=== PATIENT | male | born 1960 | race Caucasian/White ===

== ENCOUNTER 2021-01-14 12:09 | Inpatient (IN) | payer MEDICAID ==
[2021-01-14] MEDS ORDERED: diltiaZEM INJ 5 MG/ML VIAL IVP STA ×2 (12:28→13:22)
[2021-01-14] MEDS ORDERED: SODIUM CHLORIDE 0.9% 1,000 ML IV STA ×2 (12:28→14:43)
--- NOTE | 2021-01-14 12:32 | ED Physician Documentation ---
History of Present Illness - Stated complaint Stated Complaint: FAST HEART RATE - Chief complaint Chief Complaint: Cardiac - Additonal information Additional information: 60-year-old male presents the emergency department for evaluation of rapid heart rate that has been an intermittent problem since September 2020 but starting to occur with increased frequency. This morning he began to feel palpitations and felt SOB with exertion He has seen his religious studies professor Dr. Zavala who suspects that he may be entering into atrial fibrillation and has ordered what sounds like a Holter monitor though it has not been approved arrived or instilled. He did see his religious studies professor last week and she ordered Metroprolol which is just now available at the pharmacy. He denies any hx of CAD, RI, strokes, stents. He states that over the last 2 to 3 months when he has these palpitations they last a few hours before stopping. This gentleman denies any syncope or leg swelling. He does feel very fatigued when he tries to run or do activities. He is not a smoker. Past medical history: Hyperlipidemia, hypertension Meds: benazepril daily, aspirin 81 mg every other day, Crestor every 3 days newly prescribed metoprolol which she has not yet begun. Review of Systems Constitutional: reports: Fatigue. denies: Fever, Chills Eyes: reports: Reviewed and negative Ears: reports: Reviewed and negative Nose: reports: Reviewed and negative Throat: reports: Reviewed and negative Cardiac: reports: Palpitations. denies: Chest pain / pressure, Pedal edema, Calf pain Respiratory: reports: Dyspnea. denies: Cough GI: denies: Abdominal Pain, Nausea, Vomiting, Constipation, Diarrhea : denies: Dysuria, Frequency, Hesitancy Skin: reports: Reviewed and negative Musculoskeletal: reports: Reviewed and negative Neurologic: reports: Near syncope. denies: Generalized weakness, Syncope, Confused, Altered mental status, Unresponsive, Headache, Head injury PD PAST MEDICAL HISTORY - Present Medications Home Medications: Ambulatory Orders Medication Instructions Recorded Confirmed Benazepril HCl [Lotensin] 10 mg PO DAILY 01/14/21 01/14/21 Rosuvastatin Calcium [Crestor] 10 mg PO DAILY 01/14/21 01/14/21 - Allergies Allergies/Adverse Reactions: Allergies Allergy/AdvReac Type Severity Reaction Status Date / Time latex Allergy Rash Verified 01/14/21 12:13 PD ED PE EXPANDED - General General: Alert, No acute distress, Well developed/nourished - Neck Neck: Supple w/out meningeal sx. No: Adenopathy - Cardiac Cardiac: Irregularly irregular, Murmur Present, Radial strong equal, Pedal strong equal, Cap refill < 2 sec - Respiratory Respiratory: Clear to ausultation paige. No: Distress, Labored - Abdomen Abdomen: Normal Bowel sounds. No: Tender to palpation - Derm Derm: Normal color, Warm and dry. No: Rash - Neuro Neuro: Alert and Oriented X 3. No: Confused, Disoriented - GCS Eye Opening: Spontaneous Motor: Obeys Commands Verbal: Oriented Total: 15 Results - Vitals Vitals: Vital Signs - 24 hr 01/14/21 01/14/21 01/14/21 12:14 12:54 13:24 Temperature 36.7 C Heart Rate 115 H 119 H 107 H Respiratory 18 12 14 Rate Blood Pressure 141/71 H 141/85 H 122/67 O2 Saturation 100 99 98 01/14/21 01/14/21 01/14/21 14:15 14:23 14:30 Temperature Heart Rate 135 H 132 H 113 H Respiratory 16 15 14 Rate Blood Pressure 124/73 119/66 119/78 O2 Saturation 97 98 97 01/14/21 01/14/21 15:00 15:30 Temperature Heart Rate 137 H 107 H Respiratory 14 14 Rate Blood Pressure 123/79 120/74 O2 Saturation 99 99 Oxygen O2 Source Room air - EKG (time done) 1220 Rate: Rate (enter#) (154) Rhythm: Atrial fibrillation Intervals: RBBB, Other (incomplete) QRS: Normal Ischemia: Non specific changes (likely rate related) Compare to prior EKG: Old EKG unavailable Computer interpretation: Agree with computer 1447 Rate: Rate (enter#) (137) Rhythm: Atrial flutter [place]: Other Intervals: Normal LA QRS: Normal Ischemia: Q waves Compare to prior EKG: Changed from prior EKG Computer interpretation: Agree with computer - Labs Labs: Laboratory Tests 01/14/21 01/14/21 01/14/21 12:48 12:48 12:48 WBC 5.4 RBC 5.08 Hgb 16.7 Hct 47.7 MCV 93.9 MCH 32.9 H MCHC 35.0 RDW 11.9 L Plt Count 176 MPV 8.8 Neut # (Auto) 3.7 Lymph # (Auto) 1.2 L Gila # (Auto) 0.4 Eos # (Auto) 0.1 Baso # (Auto) 0.0 Absolute Nucleated RBC 0.00 Nucleated RBC % 0.0 PT INR Sodium 138 Potassium 4.0 Chloride 101 Carbon Dioxide 26 Anion Gap 11.0 BUN 17 Creatinine 1.1 Estimated GFR (MDRD) 68 L Glucose 120 H Calcium 9.2 Total Bilirubin 1.0 AST 22 ALT 16 Alkaline Phosphatase 45 Troponin I High Sens 4.8 B-Natriuretic Peptide Total Protein 7.5 Albumin 4.1 Globulin 3.4 Albumin/Globulin Ratio 1.2 Lipase 34 TSH 01/14/21 01/14/21 01/14/21 12:48 12:48 12:48 WBC RBC Hgb Hct MCV MCH MCHC RDW Plt Count MPV Neut # (Auto) Lymph # (Auto) Gila # (Auto) Eos # (Auto) Baso # (Auto) Absolute Nucleated RBC Nucleated RBC % PT 12.2 INR 1.1 Sodium Potassium Chloride Carbon Dioxide Anion Gap BUN Creatinine Estimated GFR (MDRD) Glucose Calcium Total Bilirubin AST ALT Alkaline Phosphatase Troponin I High Sens B-Natriuretic Peptide 119 H Total Protein Albumin Globulin Albumin/Globulin Ratio Lipase TSH 2.16 - Rads (name of study) CXR Radiology: Final report received (no acute cardiopulmonary process) PD MEDICAL DECISION MAKING - ED course Complexity details: reviewed results, re-evaluated patient, considered differential, d/w patient ED course: 60-year-old male presents the emergency department for evaluation of shortness of breath and palpitations. This has been a recurrent and intermittent problem since September. He was seen last week by his religious studies professor who recommended he be initiated on a beta-livan but this prescription has not yet been filled. He also was ordered to undergo Holter monitoring that is yet to be scheduled. This morning he reports that he developed shortness of breath with exertion and had a racing heart rate. On presentation he was noted to be in atrial fib with RVR rate of 157-160. This gentleman was initially given 10 mg of diltiazem without a change in heart rate therefore it was repeated. Again no change in heart rate. At this time we did then give him 10 mg of labetalol which brought him into what initially appeared to be a sinus rhythm with a steady rate of 130 but on reevaluation was atrial flutter with a 2-1 conduction. Because his heart rate remained in the 130s we repeated the labetalol this time though it was 20 mg. His heart rate did not change and he remained in flutter in the 138 without rate variability. I did seek consultation with our hospitalist Dr. Desir. She suggested transfer this gentleman to [facility] where his religious studies professor is as flutter can be very difficult to control. I did speak on the phone with Dr. ESPINOZA who declined to accept the patient in transfer. He felt that rate control and anticoagulation should be the goal at this time. If we are unable to obtain adequate rate control despite IV medications then we could consider transfer for possible cardioversion that would likely need a ASIF which we do not have here at [facility].Patient's screening labs showed no acute worrisome findings including a high-sensitivity troponin and his BNP. Chest x-ray was also unrevealing as well as a thyroid panel. This case was then discussed again with Dr. Desir who agrees to admit the patient for further treatment and evaluation of his atrial fibrillation/flutter. Departure - Departure Disposition: 64 [facility] DC/Xfer Clinical Impression: Atrial fibrillation and flutter Discharge Date/Time: 01/14/21 16:15
[2021-01-14 12:57] LABS: BASOPHILS % (AUTO) 0.6 %; EOSINOPHILS # (AUTO) 0.1 10^3/uL (0.0-0.7); EOSINOPHILS % (AUTO) 2.6 %; HCT - HEMATOCRIT 47.7 % (42.0-52.0); HGB - HEMOGLOBIN 16.7 g/dL (14.0-18.0); LYMPHOCYTES # (AUTO) 1.2 10^3/uL (1.5-3.5); LYMPHOCYTES % (AUTO) 22.1 %; MEAN CORPUSCULAR HEMOGLOBIN 32.9 pg (27.0-31.0); MEAN CORPUSCULAR VOLUME 93.9 fL (80.0-94.0); MEAN PLATELET VOLUME 8.8 fL (7.4-11.4); MONOCYTES # (AUTO) 0.4 10^3/uL (0.0-1.0); MONOCYTES % (AUTO) 7.4 %; NEUTROPHILS # (AUTO) 3.7 10^3/uL (1.5-6.6); NEUTROPHILS % (AUTO) 67.1 %; PLT - PLATELET COUNT 176 10^3/uL (130-450); RED BLOOD COUNT 5.08 10^6/uL (4.70-6.10); RED CELL DISTRIBUTION WIDTH 11.9 % (12.0-15.0); WHITE BLOOD COUNT 5.4 x10^3/uL (4.8-10.8)
[2021-01-14 13:05] LABS: INR 1.1 (0.8-1.2); PT - PROTHROMBIN TIME 12.2 secs (9.9-12.6)
[2021-01-14 13:13] LABS: ALBUMIN 4.1 g/dL (3.2-5.5); ALBUMIN/GLOBULIN RATIO 1.2 (1.0-2.2); CALCIUM 9.2 mg/dL (8.5-10.3); CREATININE 1.1 mg/dL (0.6-1.2); TOTAL PROTEIN 7.5 g/dL (6.7-8.2)
[2021-01-14] MEDS ORDERED: LABETALOL 20 MG/4 ML SYRINGE IVP STA ×2 (13:41→14:15)
--- NOTE | 2021-01-14 13:42 | XRAY Report ---
PROCEDURE: Chest 1 View X-Ray INDICATIONS: Chest Pain TECHNIQUE: One view of the chest was acquired. COMPARISON: None. FINDINGS: Surgical changes and devices: None. Lungs and pleura: No pleural effusions or pneumothorax. Lungs are clear. Mediastinum: Mediastinal contours appear normal. Heart size is normal. Bones and chest wall: No suspicious bony lesions. Overlying soft tissues appear unremarkable. IMPRESSION: No acute cardiopulmonary abnormality. Reviewed by: Adrian Clark MD on 01/14/2021 12:41 PM LEON Approved by: Adrian Clark MD on 01/14/2021 12:41 PM LEON Station ID: [id number]
[2021-01-14] MEDS ORDERED: PROCAINAMIDE 1,000 MG in SODIUM CHLORIDE 0.9% 240 ML IV STA ×2 (14:56→15:00)
[2021-01-14] MEDS ORDERED: ZOLPIDEM 5 MG TABLET PO PRN (15:46)
[2021-01-14] MEDS ORDERED: ONDANSETRON 4 MG/2 ML VIAL IVP PRN (15:46)
[2021-01-14] MEDS ORDERED: ACETAMINOPHEN 325 MG TABLET PO PRN (15:46)
[2021-01-14] MEDS ORDERED: SODIUM CHLORIDE FLUSH 0.9% 10 ML SYRINGE IVP PRN (15:46)
[2021-01-14] MEDS ORDERED: diltiaZEM INJ 125 MG in DEXTROSE 5% 100 ML IV SCH (16:00)
[2021-01-14] MEDS: SODIUM CHLORIDE 0.9% 1,000 ML IV SCH ×2 (16:15→19:09)
[2021-01-14] MEDS: SODIUM CHLORIDE FLUSH 0.9% 10 ML SYRINGE IVP SCH (17:44)
--- NOTE | 2021-01-14 18:59 | HISTORY & PHYSICAL EXAMINATION ---
DATE OF SERVICE: 01/14/2021 Physician: Devora Portillo MD HISTORY OF PRESENT ILLNESS: This is a 60-year-old white male with a history of diabetes mellitus that was diagnosed approximately 2 years ago, and he undertook losing weight, lost about 70 pounds; had been on metformin but now is no longer labeled a diabetic, according to him, and does not need to take any diabetic medicines. He also has a history of hypertension that was longstanding since his 30s, currently takes benazepril. He also has a history of hyperlipidemia for which he takes Crestor. The patient noted that about a year ago, he started to get palpitations that occurred mostly after exercise and sometimes after drinking alcohol and these increased slowly over the past 1 year and when they occur after exercise, he is very short of breath with them. There is no chest pain or dizziness associated with these. He was referred to a [facility] for this complaint of palpitations, who he saw last week, and was ordered to have a stress test (scheduled for Feb 19), and also ordered a Holter monitor, that has not yet been scheduled. The [facility] also ordered empiric Toprol-XL 12.5 mg daily that he has not yet started. Over the last 3 months, he has had much more frequent palpitations, lasting up to 6 hours. After he saw the [facility], she advised that when he is in one of the episodes with palpitations, to go be seen at a [facility] for an EKG, or come to the emergency room. He had about 4 hours of palpitations yesterday and then when they started again today, his insisted that he come to the ER. In our ER, he was found to be in new onset of atrial fibrillation with a rapid rate of about 160. He got several doses of IV diltiazem, several doses of IV labetalol, which converted him to atrial flutter at a rate of 137 and then he went back into atrial fibrillation at rates of 148. He was started on a diltiazem drip and is being admitted for new onset of atrial fibrillation, atrial flutter with rapid ventricular rate. PAST MEDICAL HISTORY: Diabetes mellitus type 2, which has now resolved after significant weight loss over the past 1 year, hypertension longstanding, hyperlipidemia. FAMILY HISTORY: Longevity is present on both sides of the family. He has a brother and a sister and nobody has heart disease. SOCIAL HISTORY: He is a nonsmoker who never smoked. He drinks alcohol nearly daily: on the weekends, he has 1/2 a bottle of red wine and 1/2 a bottle champagne, and during the week day, he has either a glass of port or Jacqueline's every day. There is no illicit drug use history. ALLERGIES: ONLY TO LATEX. MEDICATIONS 1. Benazepril 10 mg daily. 2. Crestor 10 mg every third day. 3. Adult dose aspirin half tablet every other day. REVIEW OF SYSTEMS: The patient states that he takes that Crestor spread out over every third day because if it is daily, it causes him to have malodorous bowel movements and the reason he takes aspirin 162 mg every other day is in order for it to equal 81 mg daily. He has never had a stress test before. He denies orthopnea or leg edema. He normally is very active, he can walk 1 mile a day, even up an incline like [employer]. A comprehensive review of systems was done, and the pertinent positives are listed, the rest are negative. PHYSICAL EXAM GENERAL: White male, who is in no distress. He has just converted from atrial fibrillation into sinus rhythm at a rate of 72. VITAL SIGNS: Blood pressure 115/63, afebrile, room air saturation 98%. HEENT: Unremarkable. NECK: No JVD or carotid bruits. CHEST: Clear. CARDIOVASCULAR: Normal heart sounds without murmurs. ABDOMEN: Soft, nontender. No organomegaly. Normal bowel sounds. EXTREMITIES: No clubbing, cyanosis or edema. No calf tenderness. NEUROLOGIC: Grossly intact. LABORATORY/DATA: Normal electrolytes. Normal BUN and creatinine. Normal liver tests. The first troponin was 4.8. BNP 119. TSH normal at 2.16. White blood count 5.4, hemoglobin 16.7, MCV is 93, platelet count normal at 176. INR normal at 1.1. No urinalysis was done. EKG #1: Atrial fibrillation at a rate of 154, left axis deviation, right IVCD, poor R-wave progression, lateral biphasic T-wave inversions. EKG #2: Atrial flutter with a ventricular rate of 137 and similar left axis deviation, right IVCD and now ST depressions in leads V2 through V5 are present and lateral T-waves still inverted. CHEST X-RAY: No active pulmonary disease and normal heart size. IMPRESSION/DIAGNOSES 1. New onset of atrial fibrillation. 2. Atrial flutter with rapid ventricular response. 3. History of hypertension. 4. Hyperlipidemia. 5. History of diabetes mellitus type 2, "cured" with weight loss. PLAN: Admit the patient to the ICU on diltiazem drip. Order serial troponins to rule out acute PR, especially given the ST and T-wave changes on EKG. Hold the benazepril since blood pressure is low while he is getting diltiazem for heart rate control. Now that he has converted to sinus rhythm, we will adjust heart rate medications, to start a beta-livan using the dose that was about to be prescribed by his claims sorter of 12.5 mg, but we will order it b.i.d. We will taper off the diltiazem after 1 hour of ingestion of the beta-livan dose. He has already shown results of not having hyperthyroidism, by virtue of a normal TSH. We will obtain an Echo to evaluate the dyspnea on exertion and measure an ejection fraction. Knowing his EF plus checking his A1c level, we will determine his CHADS score. Assuming he will have a CHADS score of 2 or greater since he has hypertension and diabetes by history, we will start Lovenox at full therapeutic dose b.i.d. and transition to an oral anticoagulant starting tomorrow, for stroke prevention. Plan a stress test to rule out CAD, since the outpatient stress test is scheduled in more than 5 weeks. 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 DVT PROPHYLAXIS: Pharmacotherapy. CODE STATUS: FULL CODE. ATTESTATION: Patient is expected to be discharged or transferred to another facility within 96 hours: Yes. cc: MD Dona Lee MD TD: 01/14/2021 18:31 jl [id number]
[2021-01-14] MEDS: METOPROLOL SUCCINATE 25 MG TABLET PO SCH (19:09)
[2021-01-14 20:44] LABS: BILIRUBIN,URINE NEGATIVE (NEGATIVE); GLUCOSE, URINE (UA) NEGATIVE (NEGATIVE); KETONES,URINE (UA) NEGATIVE (NEGATIVE); LEUKOCYTE ESTERASE, URINE NEGATIVE (NEGATIVE); NITRITE,URINE NEGATIVE (NEGATIVE); OCCULT BLOOD,URINE NEGATIVE (NEGATIVE); PROTEIN,URINE NEGATIVE (NEGATIVE); UROBILINOGEN,URINE 0.2 (NORMAL) E.U./dL (NORMAL)
[2021-01-14 20:50] LABS: CLARITY,URINE CLEAR (CLEAR)
[2021-01-14] MEDS ORDERED: ATORVASTATIN 10 MG TABLET PO SCH (21:00)
[2021-01-14] MEDS ORDERED: ENOXAPARIN 40 MG/0.4 ML SYRINGE SUBQ SCH (21:00)
[2021-01-14] MEDS: FAMOTIDINE 20 MG TABLET PO SCH (21:14)
[2021-01-15 04:45] LABS: BASOPHILS % (AUTO) 0.4 %; EOSINOPHILS # (AUTO) 0.1 10^3/uL (0.0-0.7); EOSINOPHILS % (AUTO) 2.5 %; HCT - HEMATOCRIT 40.4 % (42.0-52.0); HGB - HEMOGLOBIN 13.5 g/dL (14.0-18.0); LYMPHOCYTES # (AUTO) 1.7 10^3/uL (1.5-3.5); LYMPHOCYTES % (AUTO) 35.9 %; MEAN CORPUSCULAR HEMOGLOBIN 32.1 pg (27.0-31.0); MEAN CORPUSCULAR HGB CONC 33.4 g/dL (32.0-36.0); MEAN PLATELET VOLUME 9.1 fL (7.4-11.4); MONOCYTES # (AUTO) 0.4 10^3/uL (0.0-1.0); MONOCYTES % (AUTO) 8.7 %; NEUTROPHILS # (AUTO) 2.5 10^3/uL (1.5-6.6); NEUTROPHILS % (AUTO) 52.3 %; PLT - PLATELET COUNT 150 10^3/uL (130-450); RED BLOOD COUNT 4.21 10^6/uL (4.70-6.10); RED CELL DISTRIBUTION WIDTH 12.2 % (12.0-15.0); WHITE BLOOD COUNT 4.7 x10^3/uL (4.8-10.8)
[2021-01-15 04:56] LABS: CALCIUM 8.5 mg/dL (8.5-10.3); CREATININE 0.9 mg/dL (0.6-1.2); MAGNESIUM 2.2 mg/dL (1.7-2.8); POTASSIUM 3.7 mmol/L (3.5-5.0)
[2021-01-15] MEDS: SODIUM CHLORIDE FLUSH 0.9% 10 ML SYRINGE IVP SCH ×2 (06:13→08:50)
[2021-01-15] MEDS: FAMOTIDINE 20 MG TABLET PO SCH (08:47)
[2021-01-15] MEDS ORDERED: ENOXAPARIN 80 MG/0.8 ML SYRINGE SUBQ SCH (09:00)
[2021-01-15 09:01] LABS: CHOL/HDL RATIO 2.8 (<5.0); CHOLESTEROL 122 mg/dL; HDL CHOLESTEROL 43 mg/dL; LDL CHOLESTEROL,CALCULATED 61 mg/dL; LDL/HDL RATIO 1.4 (<3.6); TRIGLYCERIDES 91 mg/dL; VLDL CHOLESTEROL 18 mg/dL
[2021-01-15] MEDS: METOPROLOL SUCCINATE 25 MG TABLET PO SCH (11:56)
[2021-01-15 12:27] LABS: ESTIMATED AVERAGE GLUCOSE 103 mg/dL (70-100); HEMOGLOBIN A1c% 5.2 % (4.27-6.07)
[2021-01-15] MEDS ORDERED: diltiaZEM 30 MG TABLET PO SCH (13:30)
--- NOTE | 2021-01-15 13:47 | CARDIAC PROCEDURE NOTE ---
DATE OF SERVICE: 01/14/2021 Physician: Devora Portillo MD INDICATION: New onset of atrial fibrillation and flutter, shortness of breath with exertion. CARDIAC RISK FACTORS: Male gender, hypertension, hyperlipidemia, prior history of diabetes mellitus. DESCRIPTION OF PROCEDURE: After signing informed consent, the patient underwent a Carloz-protocol treadmill stress test with nuclear myocardial perfusion imaging. RESTING HEART RATE: 65. PEAK HEART RATE: 143 (90% predicted maximum heart rate for age). RESTING BLOOD PRESSURE: 157/85. PEAK BLOOD PRESSURE: 214/65. The patient exercised for 7 minutes and 16 seconds on a Carloz-protocol treadmill stress test. He achieved a peak heart rate of 143 (90% PMHR) and 8.99 METs. The patient had moderate shortness of breath with exertion. Oxygen saturation was 96-99% on room air throughout the test. The patient had no chest pain. Blood pressure response was excessive since he did not have his morning beta livan or NESTOR inhibitor doses. He rated his perceived exertion at 15/20 at peak, on the Veronica scale. RESTING EKG #1: Ectopic atrial rhythm with short DE interval of 120 milliseconds, left IVCD, left anterior fascicular block, poor R-wave progression. RESTING EKG #2: The patient developed normal rhythm with a normal DE interval of 180 milliseconds before starting exercise and remained in normal sinus rhythm throughout the test and in recovery. No atrial fibrillation or flutter were noted on telemetry throughout the entire test. EKG AT PEAK: ST segment depressions, downsloping, in leads I and aVL of 1 mm with biphasic T-waves in those leads, and non-specific upsloping ST depressions in leads V4 through V6 of 0.5 mm noted. SUMMARY: 1. Abnormal resting EKG. 2. Fair to good exercise tolerance. 3. Borderline ischemic changes develop during exercise, by EKG criteria. 4. Nuclear images were reported separately and showed: a fixed defect of the infero-lateral wall. No areas of reperfusion to suggest ischemia. Preserved LVEF. IMPRESSION: 1. Abnormal stress test, with evidence of CAD and old [place]. 2. Rhythm abnormality suggests that he may have sick sinus syndrome. cc: MD Dona Lee MD TD: 01/15/2021 13:36 [facility]
--- NOTE | 2021-01-15 14:45 | Discharge Plan ---
Discharge Plan Problem Reviewed?: Yes Disposition: Home, Self Care Prescriptions: Aspirin [Smitha] 1 tab PO DAILY #30 tab diltiaZEM CD [Cardizem Cd] 180 mg PO DAILY #30 cap.sr Benazepril HCl [Lotensin] 5 mg PO DAILY #15 tab Diet: Cardiac Activity Restrictions: Light activity until seen Shower Restrictions: No Driving Restrictions: No Instruction Topics: AFL/Afib Health Concerns: You were admitted to manage Atrial fib and Atrial flutter, which was found to be the cause of your palpitations. Your tests showed that you have a strong heart muscle, there was no weakened heart (CHF). The stress test, done to check for coronary artery blockages, showed that you have coronary blockage that have caused a past heart attack, in the inferior-lateral portion of the heart. Your medications need adjustment. Because you have Raynaud's disease, you should not be treated with beta-blockers. Instead, the new medication for heart rate control and for suppressing Afib, will be Cardizem CD. A prescription was electronically sent to your pharmacy. DO NOT USE THE METOPROLOL SUCCINATE MEDICINE RECENTLY PRESCRIBED BY YOUR TUTORING MANAGER. Please let all your Providers know about your Raynaud's disease. Your CHADS score = 1 (Hypertension), therefore you may continue to take aspirin daily, for stroke prevention in patients with episodic or constant Afib. Because of the coronary artery disease, you should be taking a full adult dose aspirin (325 mg) daily. Your A1c is excellent at 5.2, consistent with no longer being a Diabetic. Your cholesterol panel is also very good; please keep taking the Crestor as you are doing. Total chol was 122, LDL 61, Triglycerides 91, and HDL (good cholesterol) 43. Please resume HALF your usual dose of Benezapril, because the Cardizem will also be bringing down your blood pressure. It appears that your alcohol intake may be precipitating your Afib, on top of having coronary heart disease. Please decrease or stop regular alcohol intake. You need a follow-up appointment with your Radiochemical Technician, for possible further testing and medication adjustments. Also, YOU SHOULD NOT BE EXERCISING (WALKING OR HIKING) UNTIL CLEARED TO DO SO BY THE TUTORING MANAGER. Then, you qualify for cardiac rehab, which the Radiochemical Technician could refer you to. We have cardiac rehab here, called the [facility]. Plan of Treatment: As above. Care Goals: Improvement in symptoms and stabilization are the goals. Assessment: Patient understands and is agreeable with the plan. Additional Instructions or Follow Up instructions: If you have new or worsening symptoms, call your PCP or Radiochemical Technician for advice or come to the ER. No Smoking: If you smoke, Please STOP! Call for help. Follow-up with: Jeremy Gutierrez [Primary Care Provider] -
[2021-01-15 15:01] VITALS: BP 123/69
--- NOTE | 2021-01-15 15:33 | PHARMACY PROGRESS NOTE ---
- Best Possible Medication History Admit Date and Time: 01/14/21 1544 Processed by: Pharmacy Medication History completed: Yes Patient Interview: Completed Secondary Source(s): Pharmacy records, Insurance records Patient reports taking his rosuvastatin every 3 days rather than daily. He takes half of a full dose aspirin tablet every other day due to cost. He was recently prescribed metoprolol but he has not picked up or started this medication yet. Patient also states he takes a "long list" of vitamins/supplements but he does not recall them off the top of his head. He said he will bring a list to his next appointment with cardiology. As the person ultimately responsible for medication therapy, providers are able to order a medication from an existing home medication list in [facility] via the "Reconcile Routine" prior to Confirmation of that medication by windows support engineer. Such practice is discouraged except when the physician, in their clinical judgment, deems that a medical need exists for a medication without regard to previous use.
--- NOTE | 2021-01-15 15:36 | Nuclear Medicine Report ---
PROCEDURE: Rest and exercise myocardial perfusion SPECT with gated imaging and ejection fraction INDICATIONS: New onset afib, SOB RADIOPHARMACEUTICAL: 10.8 mCi Tc-99m Myoview IV at rest and 36.2 mCi Tc-99m Myoview IV at peak exerc ise. Pno-wbb-xedowoyj was performed. TECHNIQUE: Radiopharmaceutical was injected at peak stress test, and also at rest. SPECT images wer e obtained. SPECT myocardial perfusion images were displayed in short axis, horizontal long axis, an d vertical long axis views. Gated images were reviewed using Auto[employer] software. COMPARISON: None available. CARDIAC STRESS: A standard Carloz treadmill exercise tolerance test was performed by the patient under the supervision of an attending staff. The patient exercised for 7 minutes and 16 seconds; functional aerobic impai rment (PERI) is +10.9%. Hemodynamic data: There is normal blood pressure and heart rate response to exercise stress. Patien t achieved 90% of maximum predicted heart rate at peak exercise. Symptoms: Patient denied chest pain during exercise. EKG: No diagnostic EKG changes of ischemia; no ectopy. FINDINGS: Raw data: There is good myocardial labeling by radiotracer. No significant motion artifacts. Lung- to-heart ratio is 0.29 (normal is less than 0.38 for tetrafosmin tracer). Left ventricle function: Gated images demonstrate decreased mid-distal inferolateral left ventricle wall thickening. No segmental wall motion abnormality. No transient ischemic dilation; TID is 1.04 (normal less than 1.3). The left ventricle resting end-diastolic volume is [address] ress ejection fraction is 81%; normal values are above 45%. Myocardial perfusion: There is normal distribution of activity in the left and right ventricular addison cardium. Small to moderate mid to distal inferolateral fixed perfusion defect is seen compatible with infarct. No reversible perfusion abnormalities identified. There is superimposed inferolateral wall soft tissue attenuation artifact, evident on prone imaging. IMPRESSION: Gltae-ha-drswlgls inferolateral infarct. No evidence of ischemia Normal stress ejection fraction Decreased exercise capacity. Findings were personally telephoned to Dr. Portillo at the time of study dictation on 01/15/2021 PQRS ATTESTATIONS: Measure 322 - Is this imaging test primarily performed on a low-risk surgery patient for preoperative evaluation within 30 days preceding their low-risk non-cardiac surgery? Low-risk surgery is defined as cardiac or myocardial infarction less than 1%, including (but not limited to) endoscopic pr ocedures, superficial procedures, cataract surgery, and excisional breast surgery: Answer: No Measure 323 - Is this imaging test performed primarily for the monitoring of an asymptomatic patient who had percutaneous coronary intervention on the visit date or within 2 years of the visit date? An swer: No Measure 324 - Is this imaging test performed primarily for the initial detection and risk assessment on an asymptomatic, low coronary heart disease patient? Low CHD risk definition = clinicians should consider the maximum number of available patient factors used to estimate risk based on [place] (A TP III criteria), typically age, gender, diabetes, smoking status, and use of blood pressure medicati on, and integrate age appropriate estimates for missing elements, such as LDL or standard blood press ure. Answer: No Reviewed by: Willard Trujillo MD on 01/15/2021 3:34 PM PDT Approved by: Willard Trujillo MD on 01/15/2021 3:34 PM PDT Station ID: [id number]
--- NOTE | 2021-01-15 16:05 | DISCHARGE SUMMARY ---
Discharge Summary Admit Date: 01/14/21 Discharge Date: 01/15/21 Discharging Provider: Dr Devora Portillo Primary Care Provider: Dr Jeremy Gutierrez (PCP), Dr Dona Leonard (Cardiology) Code Status: Attempt Resuscitation Condition at Discharge: Stable Discharge Disposition: 01 Home, Self Care - HPI History of Present Illness: This is a 60-year-old white male with a history of hypertension since age 30s, hyperlipidemia on Crestor, and diabetes mellitus previously on Metformin. He lost 70 to 80 pounds a year ago by dieting and states that he no longer needs to take Metformin or any medications for diabetes. He has had palpitations for about 2 years that have increased in frequency 3 months ago. They occur at the end of exercise and he routinely takes a 1 to 3 mile walk daily and is able to walk steep bluffs and mountain hikes. They usually last 4 to 6 hours and stop on their own. He was referred to a Business Operations Analyst that he saw last week. A stress test and Holter were ordered but not yet done. He was started empirically on Metoprolol Succinate 12.5 mg daily, but has not picked up the prescription or started it yet. The Business Operations Analyst told him to come to the ER when he next had a bout of palpitations. He developed his typical palpitations without any associated symptoms and came to the ER. He was found to have atrial fib at a rate of 150. Blood pressure was stable and he had no chest pain. The first troponin was normal. EKG had nonspecific changes. The patient is being admitted for management of new onset of A. fib with RVR. - HOSPITAL COURSE Hospital Course: 1) New onset Afib The documented rhythm in the ER was A. fib with RVR, rate was 150. He received IV diltiazem 10 mg x 2, IV Labetalol pushes x2 and this converted him to atrial flutter at 137. He was then put on a diltiazem drip. He went back into Afib with RVR at rate 140. He was admitted to the ICU for further management. That evening his A. fib converted to sinus rhythm. He was ordered to start on the planned Metoprolol 12.5 mg, but at a higher dose of twice daily, because of the very fast heart rates seen, and got one dose. However the following day, he was found to have blue and purple fingers that were cold and he admitted to having a 2-year history of Raynaud's. Beta-blockers were therefore not continued. He was started on Cardizem CD 180 mg daily and discharged on this. A resting Echo was done that showed normal LV function, normal PA pressure. His CHADS2 score was 1 (hypertension), since he no longer has diabetes (A1c was 5.2). He was therefore advised to continue to take 1 aspirin daily for his stroke prophylaxis. Work-up for cause of A. fib and A. flutter was undertaken. His second troponin was also normal. 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 He also underwent a stress test (see below) 2) Aflutter with RVR As above. 3) Raynauds disease On the day after admission, he was found to have blue and purple fingers that were cold and he was putting on warming gloves. He then admitted to having a 2- year history of Raynaud's. Beta-blockers were therefore not continued. Ca- channel blockers were started instead, since they promote vasodilation. 4) Hx of Type 2 DM He states he was on Metformin for about a year then undertook aggressive weight loss, and lost 70 to 80 pounds and continues to follow a strict diet, but no dolores gasper needs diabetic meds. His A1c here was 5.2, indicating no active diabetes. 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 He was able to achieve a peak heart rate of 90% predicted max for age, and 9 METS, he had moderate shortness of breath, but stable oxygen saturations. He had borderline abnormal inferior and lateral ST and T wave abnormalities on EKG develop with exercise. The nuclear imaging portion revealed a fixed inferolateral perfusion defect, consistent with an old inferolateral NE. LVEF was normal. There were no area of reversible ischemia. He was told to increase his daily baby aspirin to a full dose of aspirin 325 mg daily, and to continue to have excellent cholesterol control. No beta-livan was started because of his significant Raynaud's disease. He was advised to see his Business Operations Analyst soon in follow-up, and told to have light activity until cleared to start cardiac rehab. 6) CAD As in #5 above. 7) Hx of essential HTN His Benazepril 10 mg daily dose was decreased by half because of the new Cardizem 180 mg dose to be started. He was advised to take the Cardizem and Benazepril every morning. 8) Hyperlipidemia He was advised to take his Crestor at night, not in the morning. Fasting lipid level was done which showed good control: Total cholesterol 122, LDL 61, Triglycerides 91, HDL 43. Increasing OTC fish oil use was advised. - ALLERGIES Allergies/Adverse Reactions: Allergies Allergy/AdvReac Type Severity Reaction Status Date / Time latex Allergy Rash Verified 01/14/21 12:13 - MEDICATIONS Home Medications: Ambulatory Orders Medication Instructions Recorded Confirmed Rosuvastatin Calcium [Crestor] 10 mg PO Q72H 01/14/21 01/15/21 Aspirin [Smitha] 1 tab PO DAILY #30 tab 01/15/21 Benazepril HCl [Lotensin] 5 mg PO DAILY #15 tab 01/15/21 diltiaZEM CD [Cardizem Cd] 180 mg PO DAILY #30 cap.sr 01/15/21 - PHYSICAL EXAM AT DISCHARGE General Appearance: positive: No acute distress, Alert Eyes Bilateral: positive: Normal inspection, EOMI ENT: positive: ENT inspection nml, No signs of dehydration Neck: positive: Nml inspection, No JVD, Other (No carotid bruit) Respiratory: positive: No respiratory distress, Breath sounds nml Cardiovascular: positive: Regular rate & rhythm, No murmur Abdomen: positive: Non-tender, No distention Skin: positive: Other (Fingers and nailbeds are cold and blue/purple) Extremities: positive: No pedal edema Neurologic/Psychiatric: positive: Oriented x3, Motor nml - LABS Result Diagrams: 01/15/21 03:45 01/15/21 03:45 - DIAGNOSTIC IMAGING Diagnostic Imaging Results: Final report reviewed, Discussed with radiologist - FOLLOW UP Follow Up: See Business Operations Analyst and PCP for hospital follow-up. - TIME SPENT Time Spent in Discharge (Minutes): 30
== END 2021-01-15 16:50 | disposition home or self-care (01) | DRG 310 ==
LOC: ED 12:09 → ICU 15:44
PROVIDERS: ADMIT Internal Medicine; ATTEND Internal Medicine
DX: I48.91 Unspecified atrial fibrillation (principal); I48.92 Unspecified atrial flutter; I73.00 Raynaud's syndrome without gangrene; I25.2 Old myocardial infarction; I25.10 Atherosclerotic heart disease of native coronary artery without angina pectoris; E78.5 Hyperlipidemia, unspecified; I10 Essential (primary) hypertension; Z86.39 Personal history of other endocrine, nutritional and metabolic disease
CPT/HCPCS: 36415; 71045; 78452; 80048; 80053; 80061; 81003; 83036; 83690; 83735; 83880; 84443; 84484; 85025; 85610; 87150; 93005; 93017; 93306; 96361; 96374; 96375; 96376; 99284; 99285; A9270; A9500; J1650; 81001; 83721; 87086

== ENCOUNTER 2021-06-08 19:36 | Outpatient (CLI) | payer MEDICAID | END 2021-06-08 19:37 | disposition home or self-care (01) | LOC: COV 19:36 | PROVIDERS: ATTEND Student in an Organized Health Care Education/Training Program | DX: Z01.812 Encounter for preprocedural laboratory examination (principal); I48.91 Unspecified atrial fibrillation; I48.92 Unspecified atrial flutter; Z20.822 Contact with and (suspected) exposure to COVID-19 ==

== ENCOUNTER 2023-01-23 14:50 | Emergency (ER) | payer MEDICAID ==
--- NOTE | 2023-01-23 15:31 | XRAY Report ---
PROCEDURE: Chest 1 View X-Ray INDICATIONS: Chest pain TECHNIQUE: One view of the chest was acquired. COMPARISON: 01/14/2021 FINDINGS: Surgical changes and devices: An electronic device is seen overlying the left heart. Lungs and pleura: No pleural effusions or pneumothorax. Lungs are clear. Mediastinum: Mediastinal contours appear normal. Heart size is normal. Bones and chest wall: No suspicious bony lesions. Age-appropriate degenerative changes are seen. O verlying soft tissues appear unremarkable. IMPRESSION: Unremarkable portable chest. Reviewed by: Carson Milton MD on 01/23/2023 2:30 PM LEON Approved by: Carson Milton MD on 01/23/2023 2:30 PM FLSUSHIL Station ID: [id number]
--- NOTE | 2023-01-23 15:32 | ED Physician Documentation ---
PD HPI CHEST PAIN - Stated complaint Stated Complaint: HIGH HR - Chief complaint Chief Complaint: Cardiac - History obtained from History obtained from: Patient - History of Present Illness Timing - onset: How many days ago (10/25 (Tuesday night, this is Tuesday afternoon)) Timing - onset during: Light activity (he was getting back from a trip to [place] with his and was carrying bag up steps and felt onset of fast and irregular heart rate. It has happened in the past and would stop after minutes/hours, so he waited to see. It has persisted however now for 1 1/2 days. ) Timing - duration: Days (10/25) Timing - details: Abrupt onset, Still present Quality: Tightness Location: Substernal Radiation: No: Jaw, Neck, Back Associated symptoms: Feeling faint / dizzy, Palpitations. No: Shortness of air, Nausea, General Weakness Similar symptoms before: Diagnosis (atrial fib/flutter episodes in the past.) Recently seen: Not recently seen Review of Systems Constitutional: denies: Fever, Chills Nose: denies: Rhinorrhea / runny nose, Congestion Throat: denies: Sore throat Cardiac: denies: Chest pain / pressure, Pedal edema, Calf pain Respiratory: denies: Cough Neurologic: denies: Near syncope, Syncope, Altered mental status PD PAST MEDICAL HISTORY - Past Medical History Cardiovascular: Hypertension, High cholesterol, Atrial flutter (prior atrial fib/blutter with ablations twice, last one several years ago. Not currently on rate controlling nor anticoag meds. ), Atrial fibrillation Endocrine/Autoimmune: Type 2 diabetes - Past Surgical History Derm: Skin cancer surgery - Present Medications Home Medications: Ambulatory Orders Medication Instructions Recorded Confirmed Rosuvastatin Calcium [Crestor] 10 mg PO DAILY 01/14/21 01/23/23 Benazepril HCl [Lotensin] 10 mg PO DAILY 01/23/23 01/23/23 - Allergies Allergies/Adverse Reactions: Allergies Allergy/AdvReac Type Severity Reaction Status Date / Time latex Allergy Rash Verified 01/14/21 12:13 - Social History Does the pt smoke?: No Smoking Status: Never smoker PD ED PE NORMAL - Vitals Vital signs reviewed: Yes - General General: Alert and oriented X 3, No acute distress, Well developed/nourished - HEENT HEENT: Moist mucous membranes, Pharynx benign - Neck Neck: Supple, no meningeal sign, No adenopathy, No JVD - Cardiac Cardiac: No murmur. No: RRR (regular but tachycardic at 154. ) - Respiratory Respiratory: Clear bilaterally - Abdomen Abdomen: Soft, Non tender - Derm Derm: Normal color, Warm and dry - Extremities Extremities: Normal ROM s pain, No edema, No calf tenderness / cord - Neuro Neuro: Alert and oriented X 3, No motor deficit, Normal speech Results - Vitals Vitals: Vital Signs - 24 hr 01/23/23 01/23/23 01/23/23 14:56 15:29 16:14 Temperature 36.3 C L Heart Rate 155 H 155 H 152 H Respiratory 17 16 15 Rate Blood Pressure 144/92 H 129/90 H 138/86 H O2 Saturation 98 97 98 01/23/23 01/23/23 01/23/23 16:15 16:28 16:37 Temperature Heart Rate 152 H 152 H 152 H Respiratory 19 16 16 Rate Blood Pressure 139/94 H 133/87 H 133/94 H O2 Saturation 98 98 100 01/23/23 01/23/23 01/23/23 16:38 16:59 17:05 Temperature Heart Rate 152 H 154 H 153 H Respiratory 17 12 Rate Blood Pressure 133/94 H 125/82 H 125/102 H O2 Saturation 100 100 01/23/23 01/23/23 01/23/23 17:21 17:50 17:57 Temperature Heart Rate 89 88 90 Respiratory 12 16 16 Rate Blood Pressure 124/56 L 112/73 O2 Saturation 100 100 Oxygen O2 Source Room air - EKG (time done) 15:04 EKG releavant findings:: EKG personally interpreted by author of this note. Relevant findings are: Rate: Rate (enter#) (154) Rhythm: Atrial flutter [place]: Normal Ischemia: Normal ST segments. No: ST elevation c/w ischemia, ST depression 17:09 EKG releavant findings:: EKG personally interpreted by author of this note. Relevant findings are: Rhythm: NSR [place]: Normal Intervals: Normal [place] QRS: Normal Ischemia: Normal ST segments. No: ST elevation c/w ischemia, ST depression Compare to prior EKG: Changed from prior EKG (from atril flutter to NSR. ) - Labs Labs: Laboratory Tests 01/23/23 01/23/23 01/23/23 15:11 15:11 15:11 WBC 6.7 RBC 5.20 Hgb 16.8 Hct 48.1 MCV 92.5 MCH 32.3 H MCHC 34.9 RDW 11.9 L Plt Count 220 MPV 9.1 Neut # (Auto) 4.2 Lymph # (Auto) 1.8 [place] # (Auto) 0.6 Eos # (Auto) 0.1 Baso # (Auto) 0.0 Absolute Nucleated RBC 0.00 Nucleated RBC % 0.0 Sodium 140 Potassium 3.9 Chloride 102 Carbon Dioxide 29 Anion Gap 9.0 BUN 18 Creatinine 1.1 Estimated GFR (MDRD) 67 L Glucose 147 H Calcium 9.2 Total Bilirubin 0.9 AST 22 ALT 21 Alkaline Phosphatase 51 Troponin I High Sens 6.4 B-Natriuretic Peptide Total Protein 8.0 Albumin 4.1 Globulin 3.9 Albumin/Globulin Ratio 1.1 Lipase 42 01/23/23 15:11 WBC RBC Hgb Hct MCV MCH MCHC RDW Plt Count MPV Neut # (Auto) Lymph # (Auto) [place] # (Auto) Eos # (Auto) Baso # (Auto) Absolute Nucleated RBC Nucleated RBC % Sodium Potassium Chloride Carbon Dioxide Anion Gap BUN Creatinine Estimated GFR (MDRD) Glucose Calcium Total Bilirubin AST ALT Alkaline Phosphatase Troponin I High Sens B-Natriuretic Peptide 367 H Total Protein Albumin Globulin Albumin/Globulin Ratio Lipase - Rads (name of study) chest xray Relevant Findings:: Prelim report reviewed, EMP independent interpretation of test (no acute process), See rad report Procedures - Cardioversion - Major first Indication: Tachyarrhythmia Risks, benefits, alternatives explained to: 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 given adenosine with slowing and clearly visible flutter waves. then bacn to fast flutter. Not changed with Diltiazem iv x 2. Discussed cardioversion with patient and his . ), considered differential (history of astril fib/flutter but last episode years ago. has similar symptoms now for 1 1/2 days. no chest pain per se. ), d/w patient Reviewed Lab Results: Troponin and bNP not elevated. Electrolytes in normal range. reviewed by me. - Critical Care Time(min): 40 Time Includes: Direct patient care, Reassess patient, Document care, Coordinate care, Medical consult Data interpretation: Labs, Pulse ox, CXR Procedures excluded from critical care time: EKG, See progress note (cardioversion) Departure - Departure Disposition: 01 Home, Self Care Clinical Impression: Atrial flutter with rapid ventricular response Condition: Stable Record reviewed to determine appropriate education?: Yes Instructions: ED Afib, ED Cardioversion Follow-Up: Jeremy Gutierrez [Primary Care Provider] - JUANA ROCK MD [Physician No Access] - Comments: Stay well-hydrated. I would take your diltiazem 120 mg daily. You had received some diltiazem IV here but that will be wearing off. I would go ahead and take a dose of your diltiazem this evening and then resume once daily. I would also take your Eliquis twice daily. You did receive a dose here. Call your human resources services specialist in the next couple of days and let them know of the event. Follow their suggestions regarding duration of the above medications and any follow-up. You were in atrial flutter persistent at 150 rate. 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 Return as needed. Discharge Date/Time: 01/23/23 18:09
[2023-01-23 15:34] LABS: ALBUMIN 4.1 g/dL (3.2-5.5); ALBUMIN/GLOBULIN RATIO 1.1 (1.0-2.2); BASOPHILS % (AUTO) 0.4 %; BILIRUBIN,TOTAL 0.9 mg/dL (0.2-1.0); CALCIUM 9.2 mg/dL (8.5-10.3); CREATININE 1.1 mg/dL (0.6-1.2); EOSINOPHILS # (AUTO) 0.1 10^3/uL (0.0-0.7); EOSINOPHILS % (AUTO) 1.3 %; HCT - HEMATOCRIT 48.1 % (42.0-52.0); HGB - HEMOGLOBIN 16.8 g/dL (14.0-18.0); LYMPHOCYTES # (AUTO) 1.8 10^3/uL (1.5-3.5); LYMPHOCYTES % (AUTO) 27.2 %; MEAN CORPUSCULAR HEMOGLOBIN 32.3 pg (27.0-31.0); MEAN CORPUSCULAR HGB CONC 34.9 g/dL (32.0-36.0); MEAN CORPUSCULAR VOLUME 92.5 fL (80.0-94.0); MEAN PLATELET VOLUME 9.1 fL (7.4-11.4); MONOCYTES # (AUTO) 0.6 10^3/uL (0.0-1.0); MONOCYTES % (AUTO) 8.2 %; NEUTROPHILS # (AUTO) 4.2 10^3/uL (1.5-6.6); NEUTROPHILS % (AUTO) 62.6 %; PLT - PLATELET COUNT 220 10^3/uL (130-450); POTASSIUM 3.9 mmol/L (3.5-5.0); RED CELL DISTRIBUTION WIDTH 11.9 % (12.0-15.0); WHITE BLOOD COUNT 6.7 x10^3/uL (4.8-10.8)
[2023-01-23] MEDS ORDERED: diltiaZEM INJ 5 MG/ML VIAL IVP STA ×2 (15:56→16:38)
[2023-01-23] MEDS ORDERED: ADENOSINE 6 MG/2 ML VIAL IVP STA (15:56)
[2023-01-23] MEDS ORDERED: SODIUM CHLORIDE 0.9% 1,000 ML IV STA (15:57)
[2023-01-23] MEDS ORDERED: PROPOFOL 200 MG/20 ML VIAL IVP STA (16:38)
[2023-01-23] MEDS ORDERED: APIXABAN 5 MG TABLET PO STA (17:23)
[2023-01-23 17:59] VITALS: BP 112/73
== END 2023-01-23 18:09 | disposition home or self-care (01) ==
LOC: ED 14:50
DX: I48.92 Unspecified atrial flutter (principal); I10 Essential (primary) hypertension; E78.00 Pure hypercholesterolemia, unspecified; I48.91 Unspecified atrial fibrillation; E11.9 Type 2 diabetes mellitus without complications; Z79.899 Other long term (current) drug therapy; Z91.040 Latex allergy status
CPT/HCPCS: 36415; 71045; 80053; 83690; 83880; 84484; 85025; 92960; 93005; 96374; 96375; 96376; 99152; 99291; A9270; J0153; 94770

== ENCOUNTER 2023-02-14 08:50 | Outpatient (CLI) | payer MEDICAID | END 2023-02-14 23:59 | disposition EMS.NT | LOC: EMS 08:50 | DX: S00.83XA Contusion of other part of head, initial encounter (principal); Y04.2XXA Assault by strike against or bumped into by another person, initial encounter; Y92.414 Local residential or business street as the place of occurrence of the external cause ==